=== PATIENT | male | born 1970 | race Caucasian/White ===

== ENCOUNTER → 2017-03-23 | Outpatient (CLI) | payer BC ==
[2013-06-14 12:04] VITALS: BP 122/64
[~2017-03-23] MED LIST: LEVAQUIN 5500 MG/TA1 PO; NORCO 325 MG-51 TA1 PO; TORADOL10 MG PO
== END ==
LOC: RAD 10:10
DX: R10.9 Unspecified abdominal pain (principal); R19.7 Diarrhea, unspecified
CPT/HCPCS: Q9967

== ENCOUNTER 2022-11-07 10:53 | Outpatient (RCR) | payer BC | END 2022-11-15 | disposition home or self-care (01) | LOC: CARDREHAB | DX: I25.119 Atherosclerotic heart disease of native coronary artery with unspecified angina pectoris (principal); Z95.1 Presence of aortocoronary bypass graft ==

== ENCOUNTER 2022-11-16 08:00 | Outpatient (RCR) | payer BC | END 2022-12-16 | disposition home or self-care (01) | LOC: CARDREHAB | DX: Z48.812 Encounter for surgical aftercare following surgery on the circulatory system (principal); Z95.1 Presence of aortocoronary bypass graft; I25.119 Atherosclerotic heart disease of native coronary artery with unspecified angina pectoris ==

== ENCOUNTER → 2025-01-03 | Outpatient (CLI) | payer BC ==
[~2025-01-03] MED LIST changes: +ASPIRIN E.C. 8181 MG PO; +ATORVASTATIN CA80 MG PO; +DOCUSATE SODIUM1 TA3 PO; +ESCITALOPRAM10 MG PO; +FARXIGA10 MG PO; +GABAPENTIN TAB600 MG PO; +Iohexol 300 - 100 ML VIAL IV ONE; +KETOROLAC10 MG PO; +LEVEMIR FLEX100 U/ML SQ; +LOSARTAN POTASS25 MG PO; +METFORMIN ER500 MG; +METOPROLOL SUCC25 M1 PO; +MUPIROCIN CALCIUM2% TP; +NITROGLYCERIN0.4 M1 SL; +NOVOLOG FLEX100 U/ML INJ; +NS 100 ML IV ONE; +RYBELSUS7 MG PO; +TYLENOL 325MG325 MG PO
== END ==
LOC: RAD 07:46
DX: I82.412 Acute embolism and thrombosis of left femoral vein (principal); R06.02 Shortness of breath; Z95.0 Presence of cardiac pacemaker; Z95.818 Presence of other cardiac implants and grafts; Z98.890 Other specified postprocedural states
CPT/HCPCS: Q9967